=== PATIENT | female | born 1960 | race Caucasian/White ===

== ENCOUNTER 2020-07-31 14:02 | Emergency (ER) | payer OTHER ==
[2020-07-31 14:28] VITALS: BP 137/75
[2020-07-31 14:29] VITALS: PULSE 77
--- NOTE | 2020-07-31 14:42 | EDM.PDOC ---
ED HPI GENERAL MEDICAL PROBLEM - General Chief Complaint: Cardiovascular Problem Stated Complaint: Heartbeat not regular feeling light headed [id number] Time Seen by Provider: 07/31/20 14:35 Source of Information: Reports: Patient History Limitations: Reports: No Limitations - History of Present Illness INITIAL COMMENTS - FREE TEXT/NARRATIVE: Patient is here for heart palpitations. She was recently diagnosed with COVID. Her symptoms started 07/18 and she was tested a week later and found to have COVID. She has completed her quarantine and feels better with regard to those symptoms, just a little cough left. However, 2 days ago, she started having irregular heart beats, racing heart and some chest discomfort. It feels like it is getting worse so she came in for evaluation. Never had this before. She does follow cardiology for 2 "leaky valves" but has not have an echo in several years. She is due to see them again in September. Duration: Day(s): (2-3) - Related Data Allergies Allergy/AdvReac Type Severity Reaction Status Date / Time No Known Allergies Allergy Verified 04/02/14 04:59 Home Meds: Home Meds Hydrochlorothiazide 25 mg PO DAILY 07/24/16 [History] Furosemide 20 mg PO DAILY 07/31/20 [History] Past Medical History Cardiovascular History: Reports: Heart Murmur, Hypertension Other Cardiovascular History: pt states leaking valves Psychiatric History: Reports: Anxiety Hematologic History: Reports: Anemia, Iron Deficiency Social & Family History - Family History Cardiac: Reports: CAD, High Cholesterol, Hypertension Respiratory: Reports: Asthma, COPD GI: Reports: Cholelithiasis : Reports: Diabetic Nephropathy Endocrine/Metabolic: Reports: Diabetes, type II - Tobacco Use Tobacco Use Status *Q: Never Tobacco User - Caffeine Use Caffeine Use: Reports: Coffee - Recreational Drug Use Recreational Drug Use: No - Living Situation & Occupation Living situation: Reports: with Family ED ROS GENERAL - Review of Systems Review Of Systems: Comprehensive ROS is negative, except as noted in HPI. ED EXAM, GENERAL - Physical Exam Exam: See Below Exam Limited By: No Limitations General Appearance: Alert, WD/WN, No Apparent Distress Eye Exam: Bilateral Eye: Normal Inspection Throat/Mouth: Normal Voice, No Airway Compromise Head: Atraumatic, Normocephalic Respiratory/Chest: No Respiratory Distress, Lungs Clear, Normal Breath Sounds, No Accessory Muscle Use, Chest Non-Tender Cardiovascular: Regular Rate, Rhythm, No Murmur GI/Abdominal: Soft, Non-Tender Extremities: Normal Inspection, Normal Range of Motion, Non-Tender Neurological: Alert, Oriented, Normal Cognition, Normal Gait, Normal Reflexes Psychiatric: Normal Affect, Normal Mood Skin Exam: Warm, Dry, Intact, Normal Color, No Rash Course - Vital Signs Last Recorded V/S: Last Vital Signs Temp 98.4 F 07/31/20 14:28 Pulse 77 07/31/20 14:28 Resp 17 07/31/20 14:28 BP 137/75 07/31/20 14:28 Pulse Ox 99 07/31/20 14:28 - Orders/Labs/Meds Orders: Active Orders 24 hr Category Date Time Status EKG Documentation Completion [RC] STAT Care 07/31/20 14:37 Active Labs: Laboratory Tests 07/31/20 07/31/20 Range/Units 14:48 14:48 WBC 4.6 L (5.0-10.0) 10^3/uL RBC 4.69 (4.2-5.4) 10^6/uL Hgb 14.1 (12.0-16.0) g/dL Hct 42.3 (37.0-47.0) % MCV 90.2 (80-100) fL MCH 30.1 (27.0-34.0) pg MCHC 33.3 (33.0-35.0) g/dL Plt Count 198 (150-450) 10^3/uL Neut % (Auto) 68.2 (42.2-75.2) % Lymph % (Auto) 19.1 L (20.5-50.1) % [place] % (Auto) 9.9 H (2-8) % Eos % (Auto) 2.6 (1.0-3.0) % Baso % (Auto) 0.2 (0.0-1.0) % Sodium 136 (136-145) mmol/L Potassium 4.4 (3.5-5.1) mmol/L Chloride 101 (98-107) mmol/L Carbon Dioxide 26 (21-32) mmol/L Anion Gap 13.4 H (7-13) mEq/L BUN 18 (7-18) mg/dL Creatinine 0.71 (0.55-1.02) mg/dL Est Cr Clr Drug Dosing 77.72 mL/min Estimated GFR (MDRD) > 60 BUN/Creatinine Ratio 25.4 (No establ ref range) Glucose 98 (74-99) mg/dL Calcium 9.1 (8.5-10.1) mg/dL Total Bilirubin 0.5 (0.2-1.0) mg/dL AST 41 H (15-37) U/L ALT 41 (14-59) U/L Alkaline Phosphatase 112 (46-116) U/L Troponin I < 0.017 (0.000-0.056) ng/mL Total Protein 7.4 (6.4-8.2) g/dL Albumin 3.8 (3.4-5.0) g/dL Globulin 3.6 Albumin/Globulin Ratio 1.1 - Re-Assessments/Exams Free Text/Narrative Re-Assessment/Exam: reviewed EKG and labs with patient. 07/31/20 15:50 Departure - Departure Time of Disposition: 15:50 Disposition: Home, Self-Care 01 Condition: Good Clinical Impression: PAC (premature atrial contraction) Forms: ED Department Discharge Additional Instructions: Monitor and document symptoms Discussed further treatment/workup possibilities Follow up with PCP in 1-3 days to discussed the above If symptoms worsen or change, call/return to the ER Sepsis Event Note (ED) - Evaluation Sepsis Screening Result: No Definite Risk - Focused Exam Vital Signs: Vital Signs Temp Pulse Pulse Resp BP Pulse Ox 07/31/20 14:28 98.4 F 77 17 137/75 99 07/31/20 14:27 97.7 F 73 19 137/75 100 - My Orders Last 24 Hours: My Active Orders 07/31/20 14:37 EKG Documentation Completion [RC] STAT - Assessment/Plan Last 24 Hours: My Active Orders 07/31/20 14:37 EKG Documentation Completion [RC] STAT
[2020-07-31 15:37] LABS: ANION GAP 13.4 mEq/L (7-13); CHLORIDE,CL 101 mmol/L (98-107); SODIUM,NA 136 mmol/L (136-145)
== END 2020-07-31 15:59 | disposition home or self-care (01) ==
LOC: DL.ED 14:02
DX: I49.1 Atrial premature depolarization (principal); I10 Essential (primary) hypertension; Z79.899 Other long term (current) drug therapy
CPT/HCPCS: 36415; 80053; 84484; 85025; 93005; 99283; 99285-25